=== PATIENT | female | born 2000 | race Caucasian/White ===

== ENCOUNTER → 2024-06-30 | Outpatient (CLI) | payer OTHER | LOC: M LAB 12:59 | PROVIDERS: ATTEND Nurse Practitioner Adult Health | DX: M25.511 Pain in right shoulder (principal) ==

== ENCOUNTER → 2024-07-05 | Outpatient (CLI) | payer OTHER | LOC: M PLARAD 07:46 | PROVIDERS: ATTEND Nurse Practitioner Adult Health | DX: M25.511 Pain in right shoulder (principal) ==